=== PATIENT | male | born 1995 | race Caucasian/White ===

== ENCOUNTER 2018-06-14 05:39 | Day surgery (SDC) | payer OTHER ==
[2018-06-14] MEDS ORDERED: CEFAZOLIN 2 GM/50 ML (PMX) 50 ML IVPB (06:00)
[2018-06-14] MEDS ORDERED: SOD CHLORIDE 0.9% 1,000 ML IV (06:00)
[2018-06-14] MEDS: BUPIVACAINE 0.25% (MPF) 30 ML INJ (07:17)
[2018-06-14] MEDS ORDERED: FENTAnyl 50 MCG/ML VIAL ×2 (07:40→08:35)
[2018-06-14] MEDS ORDERED: MIDAZOLAM 1 MG/ML 2 ML INJ (07:40)
[2018-06-14] MEDS ORDERED: PROPOFOL 20 ML (07:40)
[2018-06-14] MEDS ORDERED: LIDOCAINE 1% (MDV) 20 ML INJ (07:40)
[2018-06-14] MEDS ORDERED: ROCURONIUM 50 MG INJ (07:40)
[2018-06-14] MEDS ORDERED: ROPIVACAINE 0.5 % 30 ML VIAL (07:43)
[2018-06-14] MEDS ORDERED: DEXAMETHASONE 4 MG/ML 1 ML INJ (08:12)
[2018-06-14] MEDS ORDERED: CEFAZOLIN 1 GM INJ (08:12)
[2018-06-14] MEDS ORDERED: ONDANSETRON 4 MG INJ (08:12)
[2018-06-14] MEDS ORDERED: HYDROmorphONE 1 MG/5 ML IV SYRINGE IV ×2 (08:30)
[2018-06-14] MEDS ORDERED: GLYCOPYRROLATE 0.4 MG INJ ×2 (08:50→08:51)
[2018-06-14] MEDS ORDERED: NEOSTIGMINE 3 MG/3 ML SYRINGE (08:51)
[2018-06-14] MEDS ORDERED: HYDROCODONE/APAP (5/325) TAB PO (09:00)
[2018-06-14] MEDS ORDERED: MEPERIDINE 25 MG INJ (09:29)
[2018-06-14] MEDS: MEPERIDINE 25 MG INJ IV (10:11)
== END 2018-06-14 11:17 | disposition home or self-care (01) ==
LOC: SDS 05:39
DX: K80.10 Calculus of gallbladder with chronic cholecystitis without obstruction (principal)
CPT/HCPCS: 47562; 88304

== ENCOUNTER 2018-06-15 00:17 | Emergency (ER) | payer OTHER ==
[2018-06-15] MEDS: HYDROmorphONE 1 MG/ML SYG IV (00:37)
[2018-06-15] MEDS: LACTATED RINGER'S 1,000 ML IV (00:37)
[2018-06-15] MEDS: ONDANSETRON 4 MG INJ IV (00:37)
[2018-06-15 00:43] LABS: ADD MAN DIFF? NO
[2018-06-15 00:45] LABS: BASOPHILS % 0.2 % (0.0-2.0); HEMATOCRIT 47.1 % (42.0-52.0); HEMOGLOBIN 15.6 g/dl (14.0-18.0); LYMPHOCYTES # 0.8 10^3/ul (0.8-2.9); LYMPHOCYTES % 6.1 % (15.0-51.0); MEAN CORPUSCULAR HEMOGLOBIN 28.2 pg (29.0-33.0); MEAN CORPUSCULAR HGB CONC 33.1 g/dl (32.0-37.0); MEAN PLATELET VOLUME 9.5 fl (7.4-10.4); MONOCYTE # 1.2 10^3/ul (0.3-0.9); MONOCYTES % 9.2 % (0.0-11.0); NEUTROPHIL # 11.4 10^3/ul (1.6-7.5); NEUTROPHILS % 84.1 % (39.0-77.0); PLATELET COUNT 271 10^3/UL (140-415); RED BLOOD COUNT 5.54 10^6/ul (4.70-6.10); RED CELL DISTRIBUTION WIDTH 13.3 % (11.5-14.5)
[2018-06-15 00:45] LABS: WHITE BLOOD COUNT 13.5 10^3/ul (4.8-10.8)
[2018-06-15 01:05] LABS: ALANINE AMINOTRANSFERASE 182 IU/L (13-69); ALBUMIN 4.1 g/dl (3.3-4.9); ALBUMIN/GLOBULIN RATIO 0.97; ALKALINE PHOSPHATASE 101 IU/L (42-121); ANION GAP 21 (8-16); ASPARTATE AMINO TRANSFERASE 147 IU/L (15-46); BILIRUBIN,INDIRECT 1.5 mg/dl (0-1.1); BILIRUBIN,TOTAL 1.5 mg/dl (0.2-1.3); BLOOD UREA NITROGEN 10 mg/dl (7-20); CALCIUM 9.5 mg/dl (8.4-10.2); CARBON DIOXIDE 26 mmol/L (21-31); CHLORIDE 100 mmol/L (97-110); CREATININE 0.82 mg/dl (0.61-1.24); GLUCOSE 140 mg/dl (70-220); LIPASE 47 U/L (23-300); POTASSIUM 4.1 mmol/L (3.5-5.1); SODIUM 143 mmol/L (135-144); TOTAL PROTEIN 8.3 g/dl (6.1-8.1)
[2018-06-15] MEDS: IOHEXOL 300MG/ML 150 ML BTL (01:50)
[2018-06-15] MEDS: SOD CHLORIDE 0.9% 100 ML (01:51)
== END 2018-06-15 04:24 | disposition home or self-care (01) ==
LOC: E/R 00:17
DX: G89.18 Other acute postprocedural pain (principal); R10.9 Unspecified abdominal pain; R11.2 Nausea with vomiting, unspecified
CPT/HCPCS: 36415; 74177; 80053; 83690; 85025; 96374; 96375; 99285-25

== ENCOUNTER → 2018-08-17 | Outpatient (CLI) | payer OTHER | END | disposition home or self-care (01) | LOC: EEG 11:37 | DX: G40.909 Epilepsy, unspecified, not intractable, without status epilepticus (principal) | CPT/HCPCS: 95819 ==